=== PATIENT | male | born 1975 | race Caucasian/White ===

== ENCOUNTER 2021-01-16 07:59 | Outpatient (CLI) | payer OTHER, SELFPAY | END 2021-01-16 08:00 | DX: Z23 Encounter for immunization (principal) | CPT/HCPCS: 0001A; 91300 ==

== ENCOUNTER 2021-02-06 07:59 | Outpatient (CLI) | payer OTHER, SELFPAY | END 2021-02-06 08:00 | disposition home or self-care (01) | LOC: ANHCOVIDVC 07:59 | DX: Z23 Encounter for immunization (principal) | CPT/HCPCS: 0002A; 91300 ==